=== PATIENT | female | born 1995 | race Caucasian/White ===

== ENCOUNTER 2017-03-27 22:49 | Emergency (ER) | payer SELFPAY ==
[2017-03-27 23:02] VITALS: BP 131/76; BMI 49.9
--- NOTE | 2017-03-27 23:08 | DR.GENAD ---
HPI - PCP Primary Care Physician: PEREZ - HPI Comment HPI Comment: WORSE TODAY. NO FEVER OR DIARRHEA. - Complaint/Symptoms Chief Complaint Doctors Comments: NAUSEA, VOMITING TIMES 2 DAYS WITH SLIGHT CONGESTION. Chief Complaint:: VOMITING Self Treatment fo Chief Complaint: NO TREATMENT - Nurses notes reviewed Nurses Notes Review: Yes - Source History Provided: Patient - Mode of Arrival Mode of Arrival: Ambulatory - Timing Onset of Chief Complaint: 03/25/17 Came on: Suddenly - Duration Duration: Intermittent Duration: Days - Severity Severity: Moderate PMH - PMH Past Medical History: Yes Past Medical History: Hypertension Past Medical History Comment: PT TAKES LISINOPRIL 20MG Past Surgical History: No - Family History History of Family Medical Conditions: No - Social History Alcohol Use: None Do you use any recreational Drugs:: No Lives With: Significant Other - infectious screening In the last 2 months have you had wt loss of >10#?: NO Have you had fever, night sweats or hemotysis?: No Have you traveled outside the country in the last 6 months?: No Isolation: Standard ROS - Review of Systems Constitutional: Weakness, Fatigue. negative: Chills, Fever Eyes: negative: Eye Pain, Discharge ENTM: negative: Ear Pain, Nose Discharge, Nose Congestion, Throat Pain Respiratoy: No Symptoms Reported Cardiovascular: No Symptoms Reported Gastrointestinal/Abdominal: Abdominal Pain, Diarrhea, Nausea, Vomiting Genitourinary: Other. negative: Discharge, Dysuria, Frequency, Hematuria Neurological: Weakness, Dizziness Musculoskeletal: No Symptoms Reported Integumentary: No Symptoms Reported Hematologic/Lymphatic: No Symptoms Reported Endocrine: No Symptoms Reported All Other Systems: Reviewed and Negative PE - Vital Signs Vitals: Temperature 97.8 F Pulse Rate 113 Respiratory Rate 16 Blood Pressure 131/76 O2 Sat by Pulse Oximetry 97 - General Limitations: No Limitations General Appearance: Alert - Head Head Exam: Normal Inspection - Eyes Eye exam: Normal Appearance - ENT ENT Exam: Normal External Ear Exam External Ear Exam: Normal External Inspection TM/Canal Exam: Bilateral Normal Nose Exam: Normal Nose Exam Mouth Exam: Normal Inspection Throat Exam: Normal Inspection - Neck Neck Exam: Trachea Midline - Chest Chest Inspection: Symmetric Chest Wall Rise - Respiratory Respiratory Exam: Normal Lung Sounds Bilat Respiratory Exam: Bilateral Clear to Auscultation - Cardiovascular Cardiovascular Exam: Regular Rate, Normal Rhythm, Normal Heart Sounds - Abdominal Exam Abdominal Exam: Normal Bowel Sounds, Soft. negative: Tenderness - Extremities Extremities Exam: Normal Inspection - Back Back Exam: Normal Inspection - Neurologic Neurological Exam: Alert, Oriented X3 - Psychiatric Psychiatric Exam: Normal Affect, Normal Mood - Skin Skin Exam: Normal Color MDM - Differential Diagnosis Differential Diagnosis: GASTROENTERITIS, DEHYDRATION, ABDOMINAL PAIN Course - Treatment Treatment: SEE ORDERS - Education/Counseling Education/Counseling: Patient, Education Educated On: Diagnosis, Needs for Follow Up ROR - Labs Reviewed Laboratory Results Reviewed?: Yes Result Diagrams: 03/27/17 23:30 03/27/17 23:30 Laboratory: WBC 13.2 X10^3/uL (3.6-10.0) H 03/27/17 23:30 RBC 4.92 X10^6/uL (3.5-5.4) 03/27/17 23: Hgb 13.5 g/dL (12.0-16.0) 03/27/17 23: Hct 40.2 % (36.0-47.0) 03/27/17 23: MCV 81.8 fL (80.0-100.0) 03/27/17 23: MCH 27.4 pg (27.0-34.0) 03/27/17 23:30 MCHC 33.5 g/dL (33.0-35.0) 03/27/17 23: RDW 14.4 % (11.6-16.5) 03/27/17 23: Plt Count 419 X10^3/uL (150.0-450.0) 03/27/17 23: MPV 8.8 fL (7.4-11.0) 03/27/17 23:30 Neut % 79.0 % (42.0-75.0) H 03/27/17 23:30 Lymph % 14.8 % (21.0-51.0) L 03/27/17 23: [place] % 4.5 % (0.0-13.0) 03/27/17 23: Eos % 1.1 % (0.9-2.9) 03/27/17 23:30 Baso % 0.6 % (0.2-1.0) 03/27/17 23:30 Neut # 10.4 x10^3/uL (2.2-4.8) H 03/27/17 23:30 Lymph # 2.0 X10^3/uL (1.3-2.9) 03/27/17 23:30 [place] # 0.6 x10^3/uL (0.3-0.8) 03/27/17 23:30 Eos # 0.1 x10^3/uL (0.0-0.2) 03/27/17 23:30 Baso # 0.1 X10^3/uL (0.0-0.1) 03/27/17 23:30 Absolute Nucleated RBC 0.0 /100WBC 03/27/17 23:30 Sodium 138 mmol/L (136-145) 03/27/17 23:30 Corrected Sodium 138 mmol/L (136-145) 03/27/17 23:30 Potassium 3.8 mmol/L (3.5-5.1) 03/27/17 23:30 Chloride 103 mmol/L (98-107) 03/27/17 23:30 Carbon Dioxide 28.0 mmol/L (21-32) 03/27/17 23:30 BUN 9 mg/dL (7-18) 03/27/17 23:30 Creatinine 0.73 mg/dL (0.55-1.02) 03/27/17 23:30 Est GFR (MDRD) Af Amer > 60 (>60) 03/27/17 23:30 Est GFR (MDRD) Non-Af > 60 (>60) 03/27/17 23:30 Glucose 114 mg/dL (65-99) H 03/27/17 23:30 Calcium 8.7 mg/dL (8.5-10.1) 03/27/17 23:30 Corrected Calcium TNP 03/27/17 23:30 Total Bilirubin 0.20 mg/dL (0.2-1.0) 03/27/17 23:30 AST 17 Units/L (15-37) 03/27/17 23:30 ALT 30 Units/L (12-78) 03/27/17 23:30 Alkaline Phosphatase 111 Units/L (45-150) 03/27/17 23:30 Total Protein 7.5 g/dL (6.4-8.2) 03/27/17 23:30 Albumin 3.6 g/dL (3.4-5.0) 03/27/17 23:30 Globulin 3.9 g/dL (2.5-4.5) 03/27/17 23:30 Albumin/Globulin Ratio 0.9 Ratio (1.1-2.1) L 03/27/17 23:30 HCG, Qual Negative <10 mIU/mL 03/27/17 23:30 Specimen Type Clean catch urine 03/27/17 23:34 Urine Color Yellow (YELLOW) 03/27/17 23:34 Urine Appearance Clear (CLEAR) 03/27/17 23:34 Urine pH 6.0 (5.0 - 8.0) 03/27/17 23:34 Ur Specific [place] 1.025 (1.000-1.030) 03/27/17 23:34 Urine Protein Negative (NEGATIVE) 03/27/17 23:34 Urine Glucose (UA) Negative (NEGATIVE) 03/27/17 23:34 Urine Ketones Negative (NEGATIVE) 03/27/17 23:34 Urine Occult Blood Negative (NEGATIVE) 03/27/17 23:34 Urine Nitrite Negative (NEGATIVE) 03/27/17 23:34 Urine Bilirubin Negative (NEGATIVE) 03/27/17 23:34 Urine Urobilinogen 1+ (NORMAL) 03/27/17 23:34 Ur Leukocyte Esterase Negative (NEGATIVE) 03/27/17 23:34 Urine RBC 0-3 /HPF (NEGATIVE) 03/27/17 23:34 Urine WBC 0-3 /HPF (NEGATIVE) 03/27/17 23:34 Ur Squamous Epith Cells Few /HPF (NEGATIVE) 03/27/17 23:34 Calcium Oxalate Crystal Many /HPF (NEGATIVE) 03/27/17 23:34 Amorphous Sediment Trace /HPF (NEGATIVE) 03/27/17 23:34 Urine Bacteria Negative /HPF (NEGATIVE) 03/27/17 23:34 Ur Culture Indicated? No/not indicated 03/27/17 23:34 Influenza Type A (PCR) Negative (NEGATIVE) 03/27/17 23:33 Influenza Type B (PCR) Negative (NEGATIVE) 03/27/17 23:33 - Diagnosis Discharge Problem: Gastroenteritis Abdominal pain Qualifiers: Abdominal location: generalized Qualified Code(s): R10.84 - Generalized abdominal pain - Discharge Plan Disposition: HOME, SELF-CARE Condition: Stable Prescriptions: Diphenoxylate/Atropine [Lomotil] 1 tab PO TID PRN #15 tab PRN Reason: Ondansetron [Zofran ODT 8 mg] 8 mg PO Q8H PRN #12 tab PRN Reason: Nausea/Vomiting - Follow ups/Referrals Follow ups/Referrals: MARIA D TODD [Primary Care Provider] - 3 days - Instructions Instructions: Viral Gastroenteritis, Adult, [id number], Abdominal Pain, Adult , [id number] Additional Instructions: RETURN TO ED IF WORSE.
[2017-03-27 23:44] LABS: BASOPHILS # (AUTO) 0.1 X10^3/uL (0.0-0.1); BASOPHILS % (AUTO) 0.6 % (0.2-1.0); EOSINOPHILS # (AUTO) 0.1 x10^3/uL (0.0-0.2); EOSINOPHILS % (AUTO) 1.1 % (0.9-2.9); HEMATOCRIT 40.2 % (36.0-47.0); HEMOGLOBIN 13.5 g/dL (12.0-16.0); LYMPHOCYTES % (AUTO) 14.8 % (21.0-51.0); MEAN CORPUSCULAR HEMOGLOBIN 27.4 pg (27.0-34.0); MEAN CORPUSCULAR HGB CONC 33.5 g/dL (33.0-35.0); MEAN CORPUSCULAR VOLUME 81.8 fL (80.0-100.0); MEAN PLATELET VOLUME 8.8 fL (7.4-11.0); MONOCYTES # (AUTO) 0.6 x10^3/uL (0.3-0.8); MONOCYTES % (AUTO) 4.5 % (0.0-13.0); NEUTROPHILS # (AUTO) 10.4 x10^3/uL (2.2-4.8); PLATELET COUNT 419 X10^3/uL (150.0-450.0); RED BLOOD COUNT 4.92 X10^6/uL (3.5-5.4); RED CELL DISTRIBUTION WIDTH 14.4 % (11.6-16.5); WHITE BLOOD COUNT 13.2 X10^3/uL (3.6-10.0)
[2017-03-27 23:53] LABS: SERUM PREGNANCY TEST, QUAL NEGATIVE <10 mIU/mL
[2017-03-27 23:54] LABS: BILIRUBIN,URINE NEGATIVE (NEGATIVE); BLOOD/HEMOGLOBIN,URINE NEGATIVE (NEGATIVE); GLUCOSE, URINE NEGATIVE (NEGATIVE); KETONES,URINE NEGATIVE (NEGATIVE); LEUKOCYTE ESTERASE ,URINE NEGATIVE (NEGATIVE); NITRITES,URINE NEGATIVE (NEGATIVE); PROTEIN,URINE NEGATIVE (NEGATIVE); UROBILINOGEN,URINE 1+ (NORMAL)
[2017-03-27 23:54] LABS: ALANINE AMINOTRANSFERASE 30 Units/L (12-78); ALBUMIN 3.6 g/dL (3.4-5.0); ALKALINE PHOSPHATASE 111 Units/L (45-150); ASPARTATE AMINO TRANSFERASE 17 Units/L (15-37); BLOOD UREA NITROGEN 9 mg/dL (7-18); CALCIUM 8.7 mg/dL (8.5-10.1); CHLORIDE 103 mmol/L (98-107); COR NA(FOR HYPERGLY) 138 mmol/L (136-145); CREATININE 0.73 mg/dL (0.55-1.02); SODIUM 138 mmol/L (136-145); TOTAL PROTEIN 7.5 g/dL (6.4-8.2); eGFR BLACK RACES > 60 (>60); eGFR NON BLACK RACES > 60 (>60)
[2017-03-28 00:21] LABS: APPEARANCE,URINE CLEAR (CLEAR); BACTERIA,URINE NEGATIVE /HPF (NEGATIVE); COLOR,URINE YELLOW (YELLOW); RBC,URINE 0-3 /HPF (NEGATIVE); SQUAMOUS EPITHELIAL CELL,UR FEW /HPF (NEGATIVE)
[2017-03-28 00:22] LABS: AMORPHOUS SEDIMENT,UR TRACE /HPF (NEGATIVE); CALCIUM OXALATE CRYSTALS,UR MANY /HPF (NEGATIVE)
== END 2017-03-28 00:45 | disposition home or self-care (01) ==
LOC: ER 22:49
DX: A08.4 Viral intestinal infection, unspecified (principal); R10.84 Generalized abdominal pain
CPT/HCPCS: 36415; 80053; 81001; 84703; 85025; 87502; 99282; 99283

== ENCOUNTER 2017-04-07 22:49 | Emergency (ER) | payer SELFPAY ==
[2017-04-07 22:57] VITALS: BMI 49.9
--- NOTE | 2017-04-07 23:44 | DR.GENAD ---
HPI - PCP Primary Care Physician: - HPI Comment HPI Comment: SIMILAR EPISODE 8 DAYS AGO. NOT RESOLVING AND GETTING WORSE. ALSO NAUSEATED AND VOMITNG ON AND OFF. - Complaint/Symptoms Chief Complaint Doctors Comments: PATIENT IS HAVING VOMITING AND DIARRHEA TIMES 2 DAYS. Chief Complaint:: IPT STATES" I BEEN N/V/D FOR 2 DAYS" - Nurses notes reviewed Nurses Notes Review: Yes - Source History Provided: Patient - Mode of Arrival Mode of Arrival: Ambulatory - Timing Onset of Chief Complaint: 04/05/17 Came on: Gradually - Duration Duration: Constant Duration: Days - Severity Severity: Moderate PMH - PMH Past Medical History: Yes Past Medical History: Hypertension Past Medical History Comment: ADHD Past Surgical History: No - Family History History of Family Medical Conditions: Yes Family Medical History: Hypertension - Social History Does patient currently use any type of tobacco product: Yes Have you used tobacco products in the last 12 months: Yes Type of Tobacco Use: Cigarettes Does any household member use tobacco: No Alcohol Use: None Do you use any recreational Drugs:: No Lives With: Alone, Family Lives Where: Home - infectious screening In the last 2 months have you had wt loss of >10#?: NO Have you had fever, night sweats or hemotysis?: No Have you traveled outside the country in the last 6 months?: No Isolation: Standard ROS - Review of Systems Constitutional: Weakness, Fatigue. negative: Chills, Fever Eyes: No Symptoms Reported. negative: Eye Pain, Discharge ENTM: No Symptoms Reported, Nose Congestion. negative: Ear Pain, Nose Discharge , Throat Pain Respiratoy: Non-Productive Cough. negative: Short of Breath, Wheezing, Hemoptysis Gastrointestinal/Abdominal: No Symptoms Reported, Nausea, Vomiting Genitourinary: No Symptoms Reported. negative: Dysuria, Frequency, Hematuria Neurological: Headache, Weakness, Dizziness Musculoskeletal: Muscle Pain Integumentary: No Symptoms Reported Hematologic/Lymphatic: No Symptoms Reported Endocrine: No Symptoms Reported All Other Systems: Reviewed and Negative PE - Vital Signs Vitals: Temperature 97.2 F Pulse Rate [Left Brachial] 71 Pulse Rate 88 Respiratory Rate 18 Blood Pressure [Left Arm] 132/82 Blood Pressure 135/71 O2 Sat by Pulse Oximetry 100 - General Limitations: No Limitations General Appearance: In No Apparent Distress - Head Head Exam: Normal Inspection - Eyes Eye exam: Normal Appearance - ENT ENT Exam: Normal External Ear Exam External Ear Exam: Normal External Inspection TM/Canal Exam: Bilateral Normal Nose Exam: Normal Nose Exam Mouth Exam: Normal Inspection Throat Exam: Normal Inspection - Neck Neck Exam: Trachea Midline - Chest Chest Inspection: Symmetric Chest Wall Rise - Respiratory Respiratory Exam: Normal Lung Sounds Bilat Respiratory Exam: Bilateral Clear to Auscultation - Cardiovascular Cardiovascular Exam: Regular Rate, Normal Rhythm, Normal Heart Sounds - Abdominal Exam Abdominal Exam: Normal Bowel Sounds, Soft, Tenderness Abdominal Tenderness: Diffuse, Mild - Extremities Extremities Exam: Normal Inspection - Back Back Exam: Normal Inspection - Neurologic Neurological Exam: Alert, Oriented X3 - Psychiatric Psychiatric Exam: Normal Affect, Normal Mood - Skin Skin Exam: Normal Color MDM - Differential Diagnosis Differential Diagnosis: VOMITING, DIARRHEA, GASTROENTERITIS Course - Treatment Treatment: SEE ORDERS. - Education/Counseling Education/Counseling: Patient, Education Educated On: Diagnosis, Needs for Follow Up ROR - Labs Reviewed Result Diagrams: 04/08/17 00:10 04/08/17 00:10 Laboratory: 04/08/17 00:45 Stool - Final WBC 12.0 X10^3/uL (3.6-10.0) H 04/08/17 00:10 RBC 4.76 X10^6/uL (3.5-5.4) 04/08/17 00:10 Hgb 12.8 g/dL (12.0-16.0) 04/08/17 00:10 Hct 39.5 % (36.0-47.0) 04/08/17 00:10 MCV 82.9 fL (80.0-100.0) 04/08/17 00:10 MCH 26.9 pg (27.0-34.0) L 04/08/17 00:10 MCHC 32.5 g/dL (33.0-35.0) L 04/08/17 00:10 RDW 14.2 % (11.6-16.5) 04/08/17 00:10 Plt Count 386 X10^3/uL (150.0-450.0) 04/08/17 00:10 MPV 8.7 fL (7.4-11.0) 04/08/17 00:10 Neut % 73.7 % (42.0-75.0) 04/08/17 00:10 Lymph % 20.3 % (21.0-51.0) L 04/08/17 00:10 [place] % 4.4 % (0.0-13.0) 04/08/17 00:10 Eos % 1.1 % (0.9-2.9) 04/08/17 00:10 Baso % 0.5 % (0.2-1.0) 04/08/17 00:10 Neut # 8.8 x10^3/uL (2.2-4.8) H 04/08/17 00:10 Lymph # 2.4 X10^3/uL (1.3-2.9) 04/08/17 00:10 [place] # 0.5 x10^3/uL (0.3-0.8) 04/08/17 00:10 Eos # 0.1 x10^3/uL (0.0-0.2) 04/08/17 00:10 Baso # 0.1 X10^3/uL (0.0-0.1) 04/08/17 00:10 Absolute Nucleated RBC 0.0 /100WBC 04/08/17 00:10 Sodium 139 mmol/L (136-145) 04/08/17 00:10 Corrected Sodium TNP 04/08/17 00:10 Potassium 3.7 mmol/L (3.5-5.1) 04/08/17 00:10 Chloride 104 mmol/L (98-107) 04/08/17 00:10 Carbon Dioxide 26.5 mmol/L (21-32) 04/08/17 00:10 BUN 9 mg/dL (7-18) 04/08/17 00:10 Creatinine 0.77 mg/dL (0.55-1.02) 04/08/17 00:10 Est GFR (MDRD) Af Amer > 60 (>60) 04/08/17 00:10 Est GFR (MDRD) Non-Af > 60 (>60) 04/08/17 00:10 Glucose 94 mg/dL (65-99) 04/08/17 00:10 Calcium 8.7 mg/dL (8.5-10.1) 04/08/17 00:10 Corrected Calcium TNP 04/08/17 00:10 Total Bilirubin 0.20 mg/dL (0.2-1.0) 04/08/17 00:10 AST 20 Units/L (15-37) 04/08/17 00:10 ALT 35 Units/L (12-78) 04/08/17 00:10 Alkaline Phosphatase 104 Units/L (45-150) 04/08/17 00:10 Total Protein 7.6 g/dL (6.4-8.2) 04/08/17 00:10 Albumin 3.6 g/dL (3.4-5.0) 04/08/17 00:10 Globulin 4.0 g/dL (2.5-4.5) 04/08/17 00:10 Albumin/Globulin Ratio 0.9 Ratio (1.1-2.1) L 04/08/17 00:10 HCG, Qual Negative <10 mIU/mL 04/08/17 00:10 Specimen Type Clean catch urine 04/07/17 23:25 Urine Color Yellow (YELLOW) 04/07/17 23:25 Urine Appearance Clear (CLEAR) 04/07/17 23:25 Urine pH 5.0 (5.0 - 8.0) 04/07/17 23:25 Ur Specific [place] 1.020 (1.000-1.030) 04/07/17 23:25 Urine Protein Negative (NEGATIVE) 04/07/17 23:25 Urine Glucose (UA) Negative (NEGATIVE) 04/07/17 23:25 Urine Ketones Negative (NEGATIVE) 04/07/17 23:25 Urine Occult Blood Negative (NEGATIVE) 04/07/17 23:25 Urine Nitrite Negative (NEGATIVE) 04/07/17 23:25 Urine Bilirubin Negative (NEGATIVE) 04/07/17 23:25 Urine Urobilinogen Normal (NORMAL) 04/07/17 23:25 Ur Leukocyte Esterase Negative (NEGATIVE) 04/07/17 23:25 Urine RBC None seen /HPF (NEGATIVE) 04/07/17 23:25 Urine WBC None seen /HPF (NEGATIVE) 04/07/17 23:25 Ur Squamous Epith Cells Rare /HPF (NEGATIVE) 04/07/17 23:25 Urine Bacteria Negative /HPF (NEGATIVE) 04/07/17 23:25 Ur Culture Indicated? No/not indicated 04/07/17 23:25 Stool for White Cells Negative (NEGATIVE) 04/08/17 00:40 Stl C. diff Tox B Gene Positive (NEGATIVE) A 04/08/17 00:45 Stl C. diff [id number] Negative (NEGATIVE) 04/08/17 00:45 - Diagnosis Discharge Problem: Gastroenteritis, Abdominal pain, C. difficile colitis - Discharge Plan Disposition: 01 HOME, SELF-CARE Condition: Stable Prescriptions: Ciprofloxacin HCl [CIPRO 500 MG TAB *] 500 mg PO Q12H #28 tab Diphenoxylate/Atropine [Lomotil] 1 tab PO TID PRN #21 tab PRN Reason: Metronidazole [Flagyl Tab 500 mg] 500 mg PO Q8H #42 tab Ondansetron [Zofran ODT 8 mg] 8 mg PO Q8H PRN #12 tab PRN Reason: Nausea/Vomiting - Follow ups/Referrals Follow ups/Referrals: MARIA D TODD [Primary Care Provider] - 3 days - Instructions Instructions: Clostridium Difficile FAQs - ROBB[place], Viral Gastroenteritis, Adult, [id number], Abdominal Pain, Adult, [id number] Additional Instructions: RETURN TO ED IF WORSE.
[2017-04-07 23:56] LABS: BILIRUBIN,URINE NEGATIVE (NEGATIVE); BLOOD/HEMOGLOBIN,URINE NEGATIVE (NEGATIVE); GLUCOSE, URINE NEGATIVE (NEGATIVE); KETONES,URINE NEGATIVE (NEGATIVE); LEUKOCYTE ESTERASE ,URINE NEGATIVE (NEGATIVE); NITRITES,URINE NEGATIVE (NEGATIVE); PROTEIN,URINE NEGATIVE (NEGATIVE); UROBILINOGEN,URINE NORMAL (NORMAL)
[2017-04-08] LABS: APPEARANCE,URINE CLEAR (CLEAR); BACTERIA,URINE NEGATIVE /HPF (NEGATIVE); COLOR,URINE YELLOW (YELLOW); RBC,URINE NONE SEEN /HPF (NEGATIVE); SQUAMOUS EPITHELIAL CELL,UR RARE /HPF (NEGATIVE)
[2017-04-08 00:28] LABS: BASOPHILS # (AUTO) 0.1 X10^3/uL (0.0-0.1); BASOPHILS % (AUTO) 0.5 % (0.2-1.0); EOSINOPHILS # (AUTO) 0.1 x10^3/uL (0.0-0.2); EOSINOPHILS % (AUTO) 1.1 % (0.9-2.9); HEMATOCRIT 39.5 % (36.0-47.0); HEMOGLOBIN 12.8 g/dL (12.0-16.0); LYMPHOCYTES # (AUTO) 2.4 X10^3/uL (1.3-2.9); LYMPHOCYTES % (AUTO) 20.3 % (21.0-51.0); MEAN CORPUSCULAR HEMOGLOBIN 26.9 pg (27.0-34.0); MEAN CORPUSCULAR HGB CONC 32.5 g/dL (33.0-35.0); MEAN CORPUSCULAR VOLUME 82.9 fL (80.0-100.0); MEAN PLATELET VOLUME 8.7 fL (7.4-11.0); MONOCYTES # (AUTO) 0.5 x10^3/uL (0.3-0.8); MONOCYTES % (AUTO) 4.4 % (0.0-13.0); NEUTROPHILS # (AUTO) 8.8 x10^3/uL (2.2-4.8); NEUTROPHILS % (AUTO) 73.7 % (42.0-75.0); PLATELET COUNT 386 X10^3/uL (150.0-450.0); RED BLOOD COUNT 4.76 X10^6/uL (3.5-5.4); RED CELL DISTRIBUTION WIDTH 14.2 % (11.6-16.5)
[2017-04-08 00:45] LABS: SERUM PREGNANCY TEST, QUAL NEGATIVE <10 mIU/mL
[2017-04-08 01:50] LABS: ALANINE AMINOTRANSFERASE 35 Units/L (12-78); ALBUMIN 3.6 g/dL (3.4-5.0); ALKALINE PHOSPHATASE 104 Units/L (45-150); ASPARTATE AMINO TRANSFERASE 20 Units/L (15-37); BLOOD UREA NITROGEN 9 mg/dL (7-18); CALCIUM 8.7 mg/dL (8.5-10.1); CARBON DIOXIDE 26.5 mmol/L (21-32); CHLORIDE 104 mmol/L (98-107); CREATININE 0.77 mg/dL (0.55-1.02); SODIUM 139 mmol/L (136-145); TOTAL PROTEIN 7.6 g/dL (6.4-8.2); eGFR BLACK RACES > 60 (>60); eGFR NON BLACK RACES > 60 (>60)
[2017-04-08 02:40] LABS: STOOL FOR WBC NEGATIVE (NEGATIVE)
[2017-04-08 02:49] VITALS: BP 132/82
== END 2017-04-08 02:49 | disposition home or self-care (01) ==
LOC: ER 23:01
DX: K52.89 Other specified noninfective gastroenteritis and colitis (principal); R10.84 Generalized abdominal pain
CPT/HCPCS: 36415; 80053; 81001; 83630; 84703; 85025; 87045; 87427; 87493; 87899; 99282; 99283